=== PATIENT | male | born 1980 | race Caucasian/White ===

== ENCOUNTER → 2018-01-12 | Outpatient (CLI) | payer OTHER | LOC: BRMIMAGING 16:25 | PROVIDERS: ATTEND Physician Assistant Surgical | DX: S82.401A Unspecified fracture of shaft of right fibula, initial encounter for closed fracture (principal); W18.49XA Other slipping, tripping and stumbling without falling, initial encounter; Y93.01 Activity, walking, marching and hiking | CPT/HCPCS: 73610-PO ==